=== PATIENT | female | born 1960 | race Caucasian/White ===

== ENCOUNTER 2016-09-01 09:49 | Emergency (ER) | payer OTHER ==
[~2016-09-01] VITALS: Ht 157.5 cm; Wt 113.6 kg
[~2016-09-01 09:49] MED LIST: ACET-1890 PO; ALBU8.5H4 IH; CIPR-231 PO; DOCU250C2 PO; FURO-129 PO; GLIM2TAB2 PO; METF500T7 PO; METF750T2 PO; METR500T PO; MTC5T PO; NITR100 PO; ONDA4TAB9 PO; OXYB5TAB PO; OXYC5CAP4 PO
[2016-09-01 09:51] VITALS: BP 194/115; PULSE 72; RESP 18; O2SAT 97
--- NOTE | 2016-09-01 10:08 | ED.REPORT ---
HPI-General Illness Date of Service Sep 01, 2016 ED Provider: Dr. Armand Parisi M.D. The patient is a 56 year old female with a medical history including DM type 2, IBS, diverticulitis, and asthma who presents to the ED with hyperglycemia (400) measured this morning. The patient also reports bilateral hand numbness/ tingling that began on the right yesterday morning and slowly spread to the left. She has been drinking plenty of water and urinating frequently. The patient denies upper back pain, nausea, vomiting, diet changes, fever, chills, cough, nasal congestion, chest pain, SOB, dysuria, constipation, diarrhea, changes in her chronic abdominal pain, or other symptoms. She was seen by her chiropractor yesterday after onset of her symptoms. The patient started taking insulin one month ago and was previously on only oral DM medications. Nursing Notes Stated Complaint: HIGH BLOOD SUGAR/HANDS NUMB Chief Complaint: General Complaint Nursing Notes Reviewed: Yes Allergies: Coded Allergies: meperidine HCl (Verified Allergy, Unknown, 03/09/15) morphine (Verified Adverse Reaction, Severe, Hallucinations, 03/09/15) Scheduled Ciprofloxacin (Cipro) 500 Mg Tablet 500 MG PO BID Glimepiride (Glimepiride) 2 Mg Tablet 2 MG PO DAILYAC Metformin ER (Metformin ER) 500 Mg Tab 500 MG PO DAILYWD Metformin ER (Metformin ER) 750 Mg Tab.er.24h 750 MG PO DAILYWD Metronidazole (Flagyl) 500 Mg Tablet 500 MG PO TID Nitrofurantoin Monohyd/M-Cryst (MacroBid) 100 Mg Capsule 100 MG PO BID Scheduled PRN Acetaminophen (Tylenol) 325 Mg Tablet 650 MG PO PRN PRN PRN For Pain Albuterol HFA (Albuterol HFA) 8.5 Gm Hfa.aer.ad 2 PUFF IH Q4 PRN PRN ASTHMA Docusate Sodium (Docusate Sodium) 250 Mg Capsule 250 MG PO BID PRN PRN For Constipation Furosemide (Lasix) 20 Mg Tablet 20 MG PO DAILY PRN PRN For Shortness of Breath Metoclopramide (Metoclopramide) 5 Mg Tab 5 MG PO QID PRN PRN For Indigestion Ondansetron ODT (Zofran ODT) 4 Mg Tablet 4 MG PO QID PRN PRN For Nausea Oxybutynin Chloride ER (Oxybutynin Chloride ER) 5 Mg Tab.er.24 5 MG PO DAILY PRN PRN UNKNOWN oxyCODONE (oxyCODONE) 5 Mg Capsule 5 MG PO Q4H PRN PRN For Pain General Time Seen by MD: 10:08 Chief Complaint Other (Hyperglycemia) Hx Obtained From: Patient Arrived By: Walk-in Sudden in Onset?: No Onset Occurred: 1 - 4 hours ago Symptom Duration: Since onset Pertinent Negative: Relieved by nothing Context Related History: Reports Diabetes mellitus Recent Healthcare: No recent doctor visit Past Medical History Past Medical History Diverticulitis IBS Sleep apnea Anxiety Reports: Asthma, Diabetes mellitus (Type 2) Past Surgical History Colectomy Reports: Appendectomy, Hysterectomy, Tonsillectomy Smoking History Never Smoker Social History Alcohol Use: Denies alcohol use Drug Use: Denies drug use Ambulatory Status Independent Review of Systems + Hyperglycemia (400) - Diet changes Full Review of Systems Constitutional: Denies: Chills, Fever Ears / Nose / Throat: Denies: Nasal congestion Respiratory: Denies: Non-productive cough, Shortness of breath Cardiovascular: Denies: Chest pain GI: Denies: Abdominal pain (No changes from baseline), Constipation, Diarrhea, Nausea, Vomiting Female: Reports: Urinary frequency, Denies: Dysuria Musculoskeletal: Denies: Back pain Neurologic: Reports: Numbness (and tingling, bilateral hands) Complete sys rev & neg: except as marked. Physical Exam Vital Signs Vital Signs Date Time Temp Pulse Resp B/P Pulse Ox O2 Delivery O2 Flow Rate FiO2 09/01/16 13:06 36.5 79 18 135/62 97 Room Air 09/01/16 12:21 36.5 79 135/62 97 Room Air 09/01/16 10:34 143/84 09/01/16 09:51 36.3 72 18 194/115 97 Room Air Initial VS: Reviewed Neck: Supple, Non-tender, Full range of motion Respiratory: Breath sounds normal, Clear to auscultation, No respiratory distress Cardiovascular: Regular rate & rhythm, Heart sounds normal Abdomen / GI: Soft, Non-tender, No guarding, No rebound, No distention Skin: Warm, Dry, No cyanosis Psychiatric: Mood/affect normal, Behavior normal, Normal thought content General/Constitutional: Awake, Alert Head / Eyes: Atraumatic, Normocephalic ENT: Airway patent, Mucous membranes moist, Pharynx NL Cardiovascular: Peripheral circulation NL, Pulses = bilaterally Back: Inspection NL, No midline vertebral tend Upper Extremities Upper Extremity / MS: Neurologic intact, Vascular intact (Good radial pulses) Lower Extremity / Pelvis / MS: Neurologic intact, Vascular intact (Good distal pulses) Neurologic: Oriented X3, Speech NL, No motor deficits (Strength normal bilateral lower and upper extremities), No sensory deficits (Sensation normal face and bilateral lower and upper extremities), CN II - XII intact No facial droop Interpretation & Diagnostics Bedside Blood Glucose: 333 at 10:15 209 at 12:21 Venous Blood Gas Report: Time: 10:40 pH 7.407 pCO2 37 pO2 76.0 cHCO3 22.9 cBase -0.9 URINE DRUG SCREEN: Bedside Urine Specific [place] * 1.015 Bedside Urine pH * 5 Bedside Urine Leukocyte Esterase * Negative Bedside Urine Nitrite * Negative Bedside Urine Protein * Negative Bedside Urine Glucose * 1000mg/dl Bedside Urine Ketones * Negative Bedside Urine Urobilinogen * Normal Bedside Urine Bilirubin * Negative Bedside Urine Occult Blood * Trace Urine to Lab * Yes Lab Results Interpretation Result Diagram: 09/01/16 1040 09/01/16 1040 Test 09/01/16 10:38 09/01/16 10:40 Urine Color Straw (YELLOW) Urine Appearance Hazy (CLEAR,HAZY) Urine pH 5.0 (5.0-8.0) Urine Specific [place] 1.015 (1.003-1.035) Urine Protein Negativemg/dL (NEG,TRACE) Urine Glucose (UA) 1000mg/dL (NEGATIVE) Urine Ketones Negativemg/dL (NEGATIVE) Urine Occult Blood Negative (NEGATIVE) Urine Nitrite Negative (NEGATIVE) Urine Bilirubin Negative (NEGATIVE) Urine Urobilinogen Normalmg/dL (NORMAL) Urine Leukocyte Esterase Negative (NEGATIVE) Urine RBC 0-2/hpf (0-2) Urine WBC 0-5/hpf (0-5) Urine Epithelial Cells Occasional/hpf (NONE-MOD) Urine Crystals None seen (NONE SEEN) Urine Bacteria Few/hpf (NONE-FEW) Urine Hyaline Casts None/lpf (NONE) Urine Granular Casts None seen (NONE SEEN) Urine Waxy Casts None seen (NONE SEEN) Urine Red Blood Cell Casts None seen (NONE SEEN) Urine White Blood Cell Casts None seen (NONE SEEN) Urine Mucus None seen (None Seen) Urine Trichomonas None seen (NONE SEEN) Urine Yeast None (NONE SEEN) Urinalysis Comment None Urine Culture Reflexed Not indicated White Blood Count 9.2th/mm3 (3.8-10.1) Red Blood Count 5.18mil/mm3 (3.90-5.20) Hemoglobin 14.1g/dL (12.0-15.6) Hematocrit 42.4% (35.0-46.0) Mean Corpuscular Volume 81.9fL (81-100) Mean Corpuscular Hemoglobin 27.2pg (27.0-35.0) Mean Corpuscular Hemoglobin Concent 33.3% (32.0-37.0) Red Cell Distribution Width 13.6% (12.3-15.4) Platelet Count 300bil/L (150-400) Neutrophils (%) (Auto) 57.7% (40-74) Lymphocytes (%) (Auto) 34.5% (14-46) Monocytes (%) (Auto) 5.8% (4-12) Eosinophils (%) (Auto) 1.4% (0-5) Basophils (%) (Auto) 0.4% (0-3) Sodium Level 132mEq/L (134-144) Potassium Level 4.3mEq/L (3.5-5.2) Chloride Level 96mEq/L (97-108) Carbon Dioxide Level 22mmol/L (18-29) Blood Urea Nitrogen 14mg/dL (6-24) Creatinine 0.80mg/dL (0.57-1.00) Estimat Glomerular Filtration Rate 106mL/min (>59) Glucose Level 334mg/dL (60-99) Calcium Level 9.3mg/dL (8.5-10.1) Total Bilirubin 0.4mg/dL (0.0-1.2) Aspartate Amino Transf (AST/SGOT) 13U/L (0-50) Alanine Aminotransferase (ALT/SGPT) 22U/L (0-32) Alkaline Phosphatase 114U/L (25-150) Total Protein 7.0g/dL (6.4-8.4) Albumin 3.9g/dL (3.4-5.0) Hold Santos Top Tube Received (Received) Ketones Negative (Negative) ECG Interpretation ECG Interpretation: Sinus rhythm rate 67 Low voltage, precordial leads Time: 10:40 Interpreted by: ED physician Re-Eval/Medical Decision Med Decision/Clinical Course 56F w/ hyperglycemia, paresthesias. Reassuring neuro exam; sxs started prior to seeing chiropractor. No evidence of DKA. Feeling better on reassessment. OK for dc w/ close f/u and careful return precautions. Time of Eval: 12:28 Patient Status: Condition improved Re-Evaluation/Progress Note: Patient is feeling better. Discussed with patient lab results, diagnosis, and plan for discharge. Follow-up and return to the ER instructions given. Patient agrees with plan for care and all questions were addressed. Counseled Regarding: Diagnosis, Lab results, Need for follow-up, When/why to return to ED Discharge & Departure Primary Impression: Hyperglycemia Disposition: Home Discharge Condition All VS Reviewed: Yes Condition: Improved Patient Instructions: Diabetic Hyperglycemia (ED) Additional Instructions: Thank you for entrusting us with your care. Your exam today was reassuring and I do not think that you have a serious illness today that needs immediate intervention. However, I would like you to follow up as discussed. Call your primary care provider on Sunday for a follow-up appointment. Return to the ER with any new or worsening symptoms including abdominal pain, vomiting, or high blood sugar. Referrals: Yrn Monahan MD (PCP) Armida Land Attestation Portions of this note were transcribed by Yecenia Barcenas. I, Dr. Parisi, personally performed the history, physical exam, and medical decision-making; I reviewed and confirmed the accuracy of the information in the transcribed note. Signed by: Lisseth Segura, 09/01/2016, 13:20 copies to: Yrn Monahan MD; Armida aLnd William B MD Sep 01, 2016 10:08 YECENIA BARCENAS Sep 01, 2016 10:16
[2016-09-01] MEDS ORDERED: 0.9% Sodium Chloride 1,000 ML IV ONE (10:26)
[2016-09-01 10:34] VITALS: BP 143/84
--- NOTE | 2016-09-01 10:55 | ABG ---
DateTimeAnalyzed 10:48:00 -_ pH ____7.407 - pCO2 ___37.1__ -mmHg pO2 ___76.0__ -mmHg HCO3- ___22.9__ -mmol/L ABE ___-0.9__ -mmol/L tHb ___14.3__ -g/dL O2Hb ___93.2__ -% COHb ____1.5__ -% MetHb ____1.0__ -% sO2 ___95.6__ -% FIO2 ___21.0__ -% Drawn By LAB - Date/Time Notified____ 10:55:00 -_ Oxygen Device 1 _ROOM AIR - Notified By AMS - Notified Whom DR LAURSEN - B 760 -mmHg tO2 ___18.8__ -Vol% OrderingPhysicianInitials sl - [place] test N/A -
[2016-09-01 10:57] LABS: BASOPHILS % (AUTO) 0.4 % (0-3); EOSINOPHILS % (AUTO) 1.4 % (0-5); MONOCYTES % (AUTO) 5.8 % (4-12); Mean Corpuscular Hemoglobin 27.2 pg (27.0-35.0); Mean Corpuscular Volume 81.9 fL (81-100); NEUTROPHILS % (AUTO) 57.7 % (40-74); Platelet Count 300 bil/L (150-400)
[2016-09-01 11:17] LABS: APPEARANCE,URINE HAZY (CLEAR,HAZY); COLOR,URINE STRAW (YELLOW); OCCULT BLOOD,URINE NEGATIVE (NEGATIVE); UROBILINOGEN,URINE NORMAL (NORMAL)
[2016-09-01 12:21] VITALS: BP 135/62; PULSE 79; O2SAT 97
[2016-09-01 13:06] VITALS: BP 135/62; PULSE 79; RESP 18; O2SAT 97
== END 2016-09-01 13:10 | disposition home or self-care (01) ==
LOC: SED 09:49
DX: E11.65 Type 2 diabetes mellitus with hyperglycemia (principal); R20.0 Anesthesia of skin; J45.909 Unspecified asthma, uncomplicated; F41.9 Anxiety disorder, unspecified; Z88.5 Allergy status to narcotic agent; Z88.8 Allergy status to other drugs, medicaments and biological substances; Z79.84 Long term (current) use of oral hypoglycemic drugs
CPT/HCPCS: 36415; 80053; 81000; 82009; 82375; 82803; 82948; 85025; 93005; 96360; 99285; J7030